=== PATIENT | female | born 1955 | race Caucasian/White ===

== ENCOUNTER 2016-10-15 19:33 | Inpatient (IN) ==
[2016-10-15] MEDS ORDERED: ASPIRIN PO STA (19:45)
[2016-10-15 20:49] LABS: MANUAL DIFF NEEDED? NO
[2016-10-15 20:56] LABS: BASO% 0.3 % (0.0-0.8); EOS# 0.06 X1000 (0.0-0.7); EOS% 0.5 % (0.0-10.0); HEMATOCRIT 42.5 % (37.0-47.0); HEMOGLOBIN 13.3 g/dL (12.0-16.0); IMM GRAN# 0.07 X1000 (0.0-0.04); IMM GRAN% 0.6 % (0.0-0.5); LYMPH# 1.34 X1000 (1.2-3.4); LYMPH% 11.3 % (20.5-51.1); MCH 30.2 PG (27-31); MCHC 31.3 g/dL (33-37); MCV 96.4 FL (81-99); MONO# 0.81 X1000 (0.11-0.59); MONO% 6.8 % (1.7-9.3); MPV 10.7 FL (7.4-10.4); NEUT% 80.5 % (42.2-75.2); PLT 256 X1000 (130-400); RBC 4.41 XMIL (4.2-5.4)
[2016-10-15 21:13] LABS: AMYLASE 45 U/L (20-200); LIPASE 50 U/L (13-60)
[2016-10-15 21:16] LABS: AGAP 14; ALBUMIN 3.9 g/dL (3.5-5.0); ALKALINE PHOSPHATASE 74 U/L (32-104); BUN 13 mg/dL (8-22); CALCIUM 9.1 mg/dL (8.8-10.2); CHLORIDE 101 mmol/L (98-107); CK PROFILE 33 U/L (24-173); COSMO 279; GOT 14 U/L (10-30); GPT 16 U/L (10-36); MAGNESIUM 2.1 mg/dL (1.5-2.7); POTASSIUM 3.6 mmol/L (3.5-5.1); SODIUM 138 mmol/L (136-145); TCO2 23 mmol/L (25-35); TOTAL PROTEIN 6.4 g/dL (6.3-8.3)
[2016-10-15 21:17] LABS: INR 0.96 (0.86-1.15); PROTIME 13.1 Seconds (12.1-15.5); PTT PL 23.4 Seconds (22.6-43.9)
--- NOTE | 2016-10-15 21:55 | EKG Report ---
Test Performed on : 10/15/2016 9:21:14 PM Test Reason : CHEST PAIN Blood Pressure : / mmHG Vent. Rate : 083 BPM Atrial Rate : 083 BPM P-R Int : 168 ms QRS Dur : 086 ms QT Int : 368 ms P-R-T Axes : 057 056 060 degrees QTc Int : 432 ms Normal sinus rhythm. Possible Left atrial enlargement Borderline ECG When compared with ECG of 27-JUN-2013 18:56, aberrant conduction. is no longer present Unconfirmed Result
[2016-10-15] MEDS ORDERED: DUONEB (A & A) INH ONE (22:18)
--- NOTE | 2016-10-15 22:33 | Diag Imaging Result Document ---
PROCEDURE NAME: CT ABD/PELVIS W/ IV CONT ONLY - 10/15/2016 STUDY: CT abdomen and pelvis with intravenous contrast. There are calcified granuloma in the lower lungs. There is fatty infiltration of the liver. Normal spleen, pancreas, gallbladder, and adrenal glands. The right kidney is slightly smaller than the left. No hydronephrosis. Moderate atherosclerosis. No aneurysmal dilatation to the abdominal aorta. No bowel obstruction. No inflammation about the cecum. No abscess. The urinary bladder is only mildly distended. The uterus has been removed. No adnexal mass. There has been prior surgery to the lower lumbar spine. IMPRESSION: 1. Fatty infiltration of the liver. 2. Hysterectomy. A preliminary report was given at 10:09 p.m.
[2016-10-16] MEDS ORDERED: DUONEB (A & A) INH ONE (00:48)
[2016-10-16] MEDS ORDERED: SOLU-MEDROL IV ONE (00:48)
[2016-10-16] MEDS ORDERED: NS 1,000 ML IV ONE (00:54)
[2016-10-16] MEDS ORDERED: BENADRYL ONE (01:58)
[2016-10-16] MEDS ORDERED: BENADRYL IV ONE (02:18)
--- NOTE | 2016-10-16 02:38 | Diag Imaging Result Document ---
PROCEDURE NAME: ANGIOGRAM/PULMONARY ARTERIES - 10/15/2016 STUDY: CT chest with intravenous contrast. COMPARISON: Compared to 06/07/2011. No pleural effusions. The heart is enlarged. No thoracic aorta aneurysm or dissection. Moderate coronary artery calcifications in the left anterior descending artery. There are scattered calcified mediastinal and hilar lymph nodes with scattered calcified granuloma. Normal opacification of the pulmonary arteries and their proximal branches. There are several tiny nodules/nodular infiltrates in the right upper lobe which were not present on 06/07/2011. No consolidation. No bronchiectasis. Limited images through the upper abdomen reveal fatty infiltration of the liver. IMPRESSION: 1. No definite pulmonary emboli. 2. There is evidence of a prior granulomatous infection. 3. Mild cardiomegaly. 4. Development of tiny nodules/nodular infiltrates in the right upper lobe. A preliminary report was given at 12:18 a.m.
[2016-10-16] MEDS ORDERED: SOLU-MEDROL IV SCH (06:00)
[2016-10-16] MEDS ORDERED: DUONEB (A & A) INH PRN (07:02)
[2016-10-16] MEDS: DUONEB (A & A) INH SCH ×5 (07:50→23:12)
--- NOTE | 2016-10-16 07:58 | Diag Imaging Result Document ---
PROCEDURE NAME: CHEST-2 VIEWS - 10/15/2016 FRONTAL AND LATERAL CHEST, TWO VIEWS: COMPARISON: 02/06/2015. FINDINGS: Development of atelectasis in the midright lung. The lungs are otherwise hyperexpanded. There is increased AP diameter to the chest. The heart is mildly prominent. No pleural effusions. There are calcified mediastinal lymph nodes. There are also scattered granuloma. No free air beneath the diaphragm. No consolidation. IMPRESSION: 1. Emphysema. 2. There is evidence of a prior granulomatous infection. 3. Mild cardiomegaly.
--- NOTE | 2016-10-16 12:20 | HISTORY AND PHYSICAL ---
PRIMARY CARE PHYSICIAN: [facility]. CHIEF COMPLAINT: Cough, subjective fever, congestion, chest tightness for the past several days that has progressively worsened. HISTORY OF PRESENTING ILLNESS: This is a 61-year-old female, who presented to [facility] ER with complaints of congestion, cough, subjective fever, dizziness, chest tightness for the past several days that has progressively worsened. Workup in the ER showed a white blood cell count of 11.85. She had a D-dimer of 0.68. A chest x-ray showed emphysema, evidence of a prior granulomatous infection and mild cardiomegaly. A pulmonary arteriogram showed no pulmonary emboli, but there was development of a tiny nodular infiltrate in the right upper lobe. Abdomen and pelvic CT showed fatty infiltration of the liver. So, she has been admitted for further evaluation and treatment. PAST MEDICAL HISTORY: COPD and CHF. PAST SURGICAL HISTORY: Hysterectomy. FAMILY HISTORY: Noncontributory. SOCIAL HISTORY: She currently lives with family. States she smokes 5-6 cigarettes 2-3 times a week. Denies any alcohol use or illicit drugs. ALLERGIES: Lortab, sulfa, latex and Solu-Medrol. HOME MEDICATIONS: She takes DuoNebs as directed, Coreg 12.5 mg p.o. b.i.d., Singulair 10 mg p.o. daily, prednisone 20 mg p.o. daily, and Diovan 160 mg p.o. daily. LABORATORY DATA: Showed a white blood cell count of 11.85, hemoglobin 13.3, hematocrit 42.5, platelets 256. PT and INR of 13.1 and 0.96 with a D-dimer of 0.68. Sodium 138, potassium 3.6, chloride 101, CO2 23, BUN of 13, creatinine 0.7, glucose 154, magnesium 2.1. Cardiac enzymes x2 sets were negative. ProBNP of 64, amylase 45, lipase 50. RADIOLOGIC DATA: Chest x-ray showed emphysema and evidence of a prior granulomatous infection and mild cardiomegaly. Abdomen and pelvic CT showed fatty infiltration of the liver and a hysterectomy. Pulmonary arteriogram showed no definite pulmonary emboli. There was evidence of a prior granulomatous infection, mild cardiomegaly and development of a tiny nodular infiltrate in the right upper lobe. REVIEW OF SYSTEMS: She was positive for subjective fever, chills, cough, congestion, dizziness, wheezing, some epigastric pain, back pain, with chest tightness and shortness of breath. She denied any constipation, diarrhea, burning or hurting with urination. PHYSICAL EXAMINATION: VITAL SIGNS: On arrival, she had a pulse of 97, respirations 20, blood pressure 114/76, was satting 95% on 4 L via nasal cannula. GENERAL: This is a 61-year-old female who is sitting up in the bed and answers questions appropriately. HEENT: Normocephalic, atraumatic. Pupils are equal, round, reactive to light. Extraocular movements are intact. The oropharynx and nares are clear. NECK: Supple. LUNGS: With wheezing throughout entire posterior lung skinner. O2 via nasal cannula in use with equal lung expansion and chest wall movement. HEART: With regular rate and rhythm. No murmurs, rubs, or gallops. ABDOMEN: Soft, nontender, nondistended. Bowel sounds are present x4 quadrants. EXTREMITIES: No clubbing, cyanosis, or edema. NEUROLOGICAL: The cranial nerves 2-12 are grossly intact. ASSESSMENT: 1. An acute chronic obstructive pulmonary disease exacerbation. 2. Right upper lobe pneumonia. 3. Elevated D-dimer. 4. Tobacco abuse. PLAN: She was admitted to the medical unit at [facility]. Placed on healthy heart diet. Placed on DuoNebs q. 4 hours, Levaquin 500 mg IV q. 24 hours. We will continue her home medications as previously identified. It is noted that she received Solu-Medrol 125 mg IV x1 in the emergency room and broke out into a rash. She states she has done that before. We gave Benadryl 25 mg IV x1 in the ER, and her symptoms resolved. So, we will not give any more Solu- Medrol. Will continue her home dosage of prednisone at this time, but we may need to increase that. We will recheck a CBC, BMP in the a.m. Dictated by IMER Huff for Reese Tang MD cc: IMER Huff MD Raphael K. Quansah, MD
[2016-10-16] MEDS: LEVAQUIN 500 MG/D5W 500 MG/100 ML IVPB IV SCH (12:45)
[2016-10-16] MEDS: DIOVAN PO SCH (12:45)
[2016-10-16] MEDS: PREDNISONE PO SCH (12:45)
[2016-10-16] MEDS: COREG PO SCH ×2 (12:46→20:40)
[2016-10-16] MEDS: SINGULAIR PO SCH (12:46)
[2016-10-17] MEDS: DUONEB (A & A) INH SCH ×10 (03:55→23:38)
[2016-10-17 05:44] LABS: MANUAL DIFF NEEDED? NO
[2016-10-17 05:53] LABS: BASO% 0.2 % (0.0-0.8); EOS# 0.04 X1000 (0.0-0.7); EOS% 0.3 % (0.0-10.0); HEMATOCRIT 39.2 % (37.0-47.0); HEMOGLOBIN 12.4 g/dL (12.0-16.0); IMM GRAN# 0.08 X1000 (0.0-0.04); IMM GRAN% 0.7 % (0.0-0.5); LYMPH# 1.73 X1000 (1.2-3.4); LYMPH% 14.2 % (20.5-51.1); MCH 30.3 PG (27-31); MCHC 31.6 g/dL (33-37); MCV 95.8 FL (81-99); MONO# 1.38 X1000 (0.11-0.59); MONO% 11.3 % (1.7-9.3); MPV 10.6 FL (7.4-10.4); NEUT% 73.3 % (42.2-75.2); PLT 240 X1000 (130-400); RBC 4.09 XMIL (4.2-5.4)
[2016-10-17 06:10] LABS: AGAP 9; BUN 16 mg/dL (8-22); CALCIUM 8.9 mg/dL (8.8-10.2); CHLORIDE 102 mmol/L (98-107); COSMO 275; POTASSIUM 3.8 mmol/L (3.5-5.1); SODIUM 137 mmol/L (136-145); TCO2 26 mmol/L (25-35)
[2016-10-17] MEDS: PREDNISONE PO SCH (07:57)
[2016-10-17] MEDS: DIOVAN PO SCH ×2 (07:58→09:26)
[2016-10-17] MEDS: COREG PO SCH ×3 (07:58→20:55)
[2016-10-17] MEDS: SINGULAIR PO SCH ×2 (07:58→09:26)
[2016-10-17] MEDS: SOLU-MEDROL IV SCH ×2 (10:05→15:26)
[2016-10-17] MEDS: ZOSYN 3.375 GM/NS 3.375 GM/50 ML IVPB IV SCH ×3 (10:05→20:55)
[2016-10-17] MEDS: MUCINEX PO SCH ×2 (10:06→20:55)
[2016-10-17] MEDS: LEVAQUIN 500 MG/D5W 500 MG/100 ML IVPB IV SCH (13:02)
--- NOTE | 2016-10-17 15:09 | PROGRESS NOTE ---
DATE: 10/17/2016 SUBJECTIVE: This patient is complaining of shortness of breath and cough today, but compared with yesterday she feels a little bit better. She denies nausea, vomiting, no diarrhea, no constipation. No fever. No chills. OBJECTIVE: Vital Signs: Temperature 98.7 degrees, pulse 83, respiratory rate 18, blood pressure 121/68, O2 saturation 98 on 3 L of nasal cannula. HEENT: Head normocephalic. No trauma. PERRLA. Neck: Supple. No JVD. No masses. Central trachea. Chest: Decreased breath sounds globally, prolonged expiratory phase, bilateral inspiratory and expiatory wheezing, mild rhonchi bilaterally scattered. Abdomen: Soft, nontender, nondistended. No hepatosplenomegaly. Obese. Cardiovascular: RRR. No murmurs. Extremities: No edema. No clubbing. No cyanosis. Neurological: The patient is alert and oriented x3. No focal neurological deficits. LABORATORY: WBC 12, hemoglobin 12.4, hematocrit 39.2, platelet 240,000. Sodium 137, potassium 3.8, chloride 102, bicarbonate 26, BUN 16, creatinine 0.6, glucose 105, calcium 8.9. ASSESSMENT AND PLAN: 1. Acute on chronic obstructive pulmonary disease exacerbation. This patient is still having inspiratory and expiatory wheezing, she is on prednisone at home and apparently she has been on prednisone since . She already has some body changes related to this. I will increase the dose of prednisone p.o. from 20 to 60, I will not use methyl prednisolone because apparently this patient has some kind of allergies to this. Continue with respiratory treatment, continue with oxygen and pulmonary toilet. 2. Right upper lobe pneumonia. Continue with the same management. Continue with antibiotics. 3. Elevated D-dimer. Aware. 4. Tobacco abuse. This patient has been highly advised against tobacco abuse, I will continue with daily cessation education. cc: MD Rambo Gunderson MD
[2016-10-17] MEDS: ROBITUSSIN-AC PO PRN (20:55)
[2016-10-18] MEDS: TYLENOL PO PRN ×3 (00:26→20:36)
[2016-10-18] MEDS: DUONEB (A & A) INH SCH ×14 (02:39→22:08)
[2016-10-18] MEDS: ZOSYN 3.375 GM/NS 3.375 GM/50 ML IVPB IV SCH ×4 (03:39→20:32)
[2016-10-18] MEDS: ROBITUSSIN-AC PO PRN (03:45)
[2016-10-18 06:14] LABS: MANUAL DIFF NEEDED? NO
[2016-10-18 06:24] LABS: BASO% 0.4 % (0.0-0.8); EOS# 0.03 X1000 (0.0-0.7); EOS% 0.3 % (0.0-10.0); HEMATOCRIT 42.1 % (37.0-47.0); HEMOGLOBIN 13.4 g/dL (12.0-16.0); IMM GRAN% 0.9 % (0.0-0.5); LYMPH# 2.21 X1000 (1.2-3.4); LYMPH% 19.3 % (20.5-51.1); MCH 30.5 PG (27-31); MCHC 31.8 g/dL (33-37); MCV 95.7 FL (81-99); MONO# 1.29 X1000 (0.11-0.59); MONO% 11.3 % (1.7-9.3); MPV 10.6 FL (7.4-10.4); NEUT% 67.8 % (42.2-75.2); PLT 264 X1000 (130-400)
[2016-10-18 06:39] LABS: AGAP 15; BUN 12 mg/dL (8-22); CALCIUM 8.8 mg/dL (8.8-10.2); CHLORIDE 98 mmol/L (98-107); COSMO 273; POTASSIUM 3.9 mmol/L (3.5-5.1); SODIUM 137 mmol/L (136-145); TCO2 24 mmol/L (25-35)
[2016-10-18] MEDS: DIOVAN PO SCH (08:48)
[2016-10-18] MEDS: COREG PO SCH ×2 (08:48→20:33)
[2016-10-18] MEDS: SINGULAIR PO SCH (08:49)
[2016-10-18] MEDS: MUCINEX PO SCH ×2 (08:49→20:33)
[2016-10-18] MEDS: ZOFRAN IV PRN ×2 (08:54→18:11)
[2016-10-18] MEDS ORDERED: PREDNISONE PO SCH (09:00)
[2016-10-18] MEDS ORDERED: SOLU-MEDROL ONE (12:12)
[2016-10-18] MEDS ORDERED: SOLU-MEDROL IV ONE (12:17)
[2016-10-18 12:28] LABS: BE -4.2 mmoll (-3.0-3.0); BLOOD TYPE ARTERIAL; DRAW SITE R RADIAL; METHB 0.7 % (0.0-1.5); O2(CT) 15.6 mL/dL (15.0-23.0); PO2(98.6) 52 mmHg (60-100); SAMPLE BLOOD; SAO2 78.5 % (95.0-100.0); THB 14.4 g/dL (11.5-17.4)
--- NOTE | 2016-10-18 13:31 | Diag Imaging Result Document ---
PROCEDURE NAME: CHEST-PORTABLE - 10/18/2016 PORTABLE CHEST: Compared 10/15/2016. FINDINGS: There is stable borderline cardiomegaly. There has been development of mild perihilar infiltrate at the right upper lobe. There are no other acute changes identified. There is no pneumothorax seen. IMPRESSION: Development of perihilar infiltrate at right upper lobe.
[2016-10-18 13:44] LABS: pH(98.6) 7.06 (7.35-7.45)
[2016-10-18 13:45] LABS: PCO2(98.6) 103 mmHg (35-45)
[2016-10-18 13:46] LABS: MODALITY BI PAP
[2016-10-18 13:47] LABS: ALLEN TEST YES
--- NOTE | 2016-10-18 13:52 | EKG Report ---
Test Performed on : 10/18/2016 1:01:23 PM Test Reason : pt non responsive Blood Pressure : / mmHG Vent. Rate : 102 BPM Atrial Rate : 102 BPM P-R Int : 184 ms QRS Dur : 086 ms QT Int : 342 ms P-R-T Axes : 074 068 060 degrees QTc Int : 445 ms Sinus tachycardia. Biatrial enlargement Abnormal ECG When compared with ECG of 15-OCT-2016 21:21, (Unconfirmed) Nonspecific T wave abnormality no longer evident in Anterior leads Unconfirmed Result
[2016-10-18 14:02] LABS: URINE CULTURE PL NEEDED? NO
[2016-10-18 14:04] LABS: BILIRUBIN URINE NEGATIVE (NEGATIVE); BLOOD URINE 4+ (NEGATIVE); CLARITY SL. CLOUDY (CLEAR); COLOR YELLOW; GLUCOSE URINE NEGATIVE (NEGATIVE); LEUKOCYTES URINE NEGATIVE (NEGATIVE); NITRITE URINE NEGATIVE (NEGATIVE); PROTEIN URINE 2+(100 mg/dL) mg/dL (NEGATIVE); SP GRAVITY URINE 1.025; UROBILINOGEN URINE NORMAL
[2016-10-18 14:39] LABS: URINE EPITHELIAL CELLS <10 /HPF (<10); URINE RBC 20-40 /HPF (<10); URINE WBC <10 /HPF (<10)
[2016-10-18 14:40] LABS: URINE CAST GRANULAR PRESENT /LPF; URINE CRYSTAL NONE SEEN /HPF; URINE SOURCE CATH
--- NOTE | 2016-10-18 14:46 | PROGRESS NOTE ---
DATE: 10/18/2016 SUBJECTIVE: This patient is complaining of shortness of breath today again. As per the patient, when I saw her in the morning, she was feeling about the same, but today in the afternoon around noon she went to the bathroom by herself and the nurse team found her unresponsive, probably this patient had a vasovagal reaction and on top of that this patient is still has COPD exacerbation that is not getting better. We did before this patient on BiPAP an ABG that showed pH of 7.06, pCO2 of 103 and PO2 of 52. Lactic acid 0.6. This patient will be transferred to the ICU and probably this patient will be intubated. I already talked to the stock house worker to find a place and transfer this patient to [facility] ICU. This patient needs to be seen by a client care coordinator. As per the nurse and some of the respiratory therapy team this patient has been increasing and decreasing the oxygen level of treatment by herself and adding and modifying her medications when she has medications scheduled here. OBJECTIVE: Vital Signs: On the monitor heart rate 103. I do not see any respiratory rate on the monitor but on my physical exam is around 28-35, blood pressure 179/116, O2 saturation, this patient is on BiPAP machine at this moment and the oxygen saturation is 98. HEENT: Head normocephalic. No trauma. PERRLA. Neck: Supple. No JVD. No masses. Central trachea. Chest: Decreased breath sounds globally. There is decreased air entry bilaterally with short inspiratory phase. Cardiovascular: RRR. No murmurs. Tachycardic. Neurological: The patient is lethargic. She is not following commands. She moves all 4 extremities. LABORATORY DATA: WBC 11.4, hemoglobin 13.4, hematocrit 42.1, platelets 264,000. Sodium 137, potassium 3.9, chloride 98, bicarbonate 24, BUN 12, creatinine 0.9, glucose 92, calcium 8.8. ASSESSMENT AND PLAN: 1. Acute hypercapnic respiratory failure, this patient is on a BiPAP machine at this moment but probably she will need mechanical intubation. I have placed this patient on methylprednisolone 60 q.6h hours, I talked to the patient about this treatment in the morning and she told me that methylprednisolone can cause some kind of itchiness in her hands but nothing major. 2. Acute on chronic obstructive pulmonary disease exacerbation as above. This condition is getting worse, I do believe that she needs to be evaluated by the Pulmonary Department. 3. Right upper lobe pneumonia. This patient has been placed on Zosyn and levofloxacin. We will continue to monitor. We will continue with the same treatment for now. 4. Elevated D-dimer. Aware. 5. Tobacco abuse. This patient has been highly advised multiple times against tobacco abuse. She told me that when she feels better she smokes. I will continue with daily cessation education. 6. Morbid obesity. Aware. 7. Acute respiratory acidosis which is not compensated, probably this patient will be intubated and transferred to [facility] to continue treatment. Overall, this patient has poor prognosis, she has a severe COPD, this patient probably will be intubated and transferred to [facility]. She needs a pulmonary department evaluation and followup. cc: MD Rambo Gunderson MD
[2016-10-18] MEDS: LEVAQUIN 500 MG/D5W 500 MG/100 ML IVPB IV SCH (14:51)
[2016-10-18 15:36] LABS: BLOOD TYPE ARTERIAL; DRAW SITE R RADIAL; METHB 1.1 % (0.0-1.5); O2(CT) 18.3 mL/dL (15.0-23.0); PCO2(98.6) 42 mmHg (35-45); PO2(98.6) 94 mmHg (60-100); SAMPLE BLOOD; SAO2 97.5 % (95.0-100.0); SRATE 14 BPM; THB 13.5 g/dL (11.5-17.4); pH(98.6) 7.34 (7.35-7.45)
[2016-10-18 15:38] LABS: ALLEN TEST YES; MODALITY BI PAP
[2016-10-18] MEDS: SOLU-MEDROL IV SCH (18:11)
[2016-10-19] MEDS: DUONEB (A & A) INH SCH ×13 (00:14→23:57)
[2016-10-19] MEDS: SOLU-MEDROL IV SCH ×4 (01:15→20:09)
[2016-10-19] MEDS: ZOFRAN IV PRN ×3 (01:45→22:10)
[2016-10-19] MEDS: ZOSYN 3.375 GM/NS 3.375 GM/50 ML IVPB IV SCH ×4 (03:32→20:10)
[2016-10-19 04:47] LABS: BE 0.2 mmoll (-3.0-3.0); BLOOD TYPE ARTERIAL; DRAW SITE R RADIAL; METHB 1.2 % (0.0-1.5); O2(CT) 18.4 mL/dL (15.0-23.0); PO2(98.6) 107 mmHg (60-100); SAMPLE BLOOD; SAO2 98.2 % (95.0-100.0); SRATE 14 BPM; THB 13.5 g/dL (11.5-17.4); pH(98.6) 7.33 (7.35-7.45)
[2016-10-19 04:49] LABS: PCO2(98.6) 51 mmHg (35-45)
[2016-10-19 04:50] LABS: ALLEN TEST YES; MODALITY BI PAP
[2016-10-19 06:45] LABS: AGAP 16; BUN 18 mg/dL (8-22); CALCIUM 8.7 mg/dL (8.8-10.2); CHLORIDE 98 mmol/L (98-107); COSMO 279; POTASSIUM 4.2 mmol/L (3.5-5.1); SODIUM 137 mmol/L (136-145); TCO2 22 mmol/L (25-35)
[2016-10-19 07:08] LABS: BASO% 0.1 % (0.0-0.8); HEMATOCRIT 40.7 % (37.0-47.0); HEMOGLOBIN 12.8 g/dL (12.0-16.0); IMM GRAN# 0.07 X1000 (0.0-0.04); IMM GRAN% 0.6 % (0.0-0.5); LYMPH# 0.61 X1000 (1.2-3.4); LYMPH% 5.2 % (20.5-51.1); MANUAL DIFF NEEDED? YES; MCH 29.8 PG (27-31); MCHC 31.4 g/dL (33-37); MCV 94.7 FL (81-99); MONO# 0.34 X1000 (0.11-0.59); MONO% 2.9 % (1.7-9.3); MPV 11.1 FL (7.4-10.4); NEUT% 91.2 % (42.2-75.2); PLT 267 X1000 (130-400)
[2016-10-19 07:15] LABS: BANDS 4 % (0-1); LYMPHS 4 % (21-51); MONO 2 % (1-9)
[2016-10-19] MEDS: SINGULAIR PO SCH (08:21)
[2016-10-19] MEDS: DIOVAN PO SCH (08:21)
[2016-10-19] MEDS: MUCINEX PO SCH ×2 (08:21→20:09)
[2016-10-19] MEDS: COREG PO SCH ×2 (08:21→20:09)
[2016-10-19] MEDS ORDERED: NS 500 ML ONE (09:27)
[2016-10-19] MEDS ORDERED: CALMOSEPTINE OINTMENT TOP PRN (11:21)
[2016-10-19] MEDS: LEVAQUIN 500 MG/D5W 500 MG/100 ML IVPB IV SCH (12:39)
[2016-10-19] MEDS: XANAX PO PRN ×2 (12:51→22:11)
--- NOTE | 2016-10-19 16:03 | PROGRESS NOTE ---
DATE: 10/19/2016 SUBJECTIVE: The patient is having shortness of breath and is a little bit anxious. She is asking for double the dose of nebulizer treatment. No fever. No chills. The patient still smokes. OBJECTIVE: Vital Signs: Blood pressure 147/64, pulse of 80, respirations 21, temperature 97.4 degrees, saturation of 95% on BiPAP 40% FiO2. General Appearance: Anxious white female in mild distress due to shortness of breath. HEENT: Anicteric sclerae and conjunctivae. Neck: Supple. No JVD. No bruits. Cardiovascular: S1, S2. Normal rate and rhythm. No murmur, rubs, or gallops. Pulmonary: The patient has very decreased air movement bilaterally and wheezes, mostly expiratory wheeze. Gastrointestinal: Soft, nontender, nondistended. Normoactive bowel sounds. Musculoskeletal: No clubbing, cyanosis, or edema. LABORATORY: White count 11.66, hemoglobin 12.8, hematocrit of 40.7, platelets of 267,000. Chemistry revealed sodium 137, potassium 4.2, chloride 98, bicarb 22, BUN 18, creatinine 0.9, glucose 151, calcium 8.7. ASSESSMENT AND PLAN: This is a 61-year-old, white female admitted to the hospital for acute chronic obstructive pulmonary disease exacerbation. 1. Acute chronic obstructive pulmonary disease exacerbation. The patient does have acute on chronic respiratory distress due to hypercapnia. We will continue Levaquin IV. She does take methylprednisone 60 mg q.6 h., Singulair 10 mg p.o. daily, and q.4 h. nebulizer. Cultures have remained negative thus far. 2. Tobacco abuse. Education provided. The patient is adamant about quitting. Will give the patient a nicotine patch to decrease her craving. 3. Hypertension. We will continue with Diovan and Coreg. 4. Deep vein thrombosis prophylaxis. Will put the patient on Lovenox. 5. Code Status: The patient is a full code. cc: Rambo Tellez MD
[2016-10-19] MEDS: TYLENOL PO PRN ×2 (16:16→22:10)
[2016-10-20] MEDS: DUONEB (A & A) INH SCH ×11 (01:40→22:33)
[2016-10-20] MEDS: SOLU-MEDROL IV SCH ×4 (01:48→18:42)
[2016-10-20] MEDS: ZOSYN 3.375 GM/NS 3.375 GM/50 ML IVPB IV SCH ×4 (03:47→20:45)
[2016-10-20] MEDS: ZOFRAN IV PRN (06:20)
[2016-10-20] MEDS: DIOVAN PO SCH (10:37)
[2016-10-20] MEDS: MUCINEX PO SCH ×2 (10:37→20:46)
[2016-10-20] MEDS: COREG PO SCH ×2 (10:37→20:47)
[2016-10-20] MEDS: SINGULAIR PO SCH (10:37)
[2016-10-20] MEDS: LOVENOX SUBQ SCH (10:38)
[2016-10-20] MEDS: XANAX PO PRN (10:41)
--- NOTE | 2016-10-20 13:31 | PROGRESS NOTE ---
DATE: 10/20/2016 SUBJECTIVE: The patient is feeling much better today. She appeared to be much more comfortable, rested well overnight with the help of Xanax. No acute events reported by the overnight staff. OBJECTIVE: Vital Signs: This morning, blood pressure 114/64, pulse of 54, respirations 16, temperature 97.7 degrees, saturations of 97-100% on 4% iO2 BiPAP. General Appearance: Morbidly obese, white female in no acute distress. Appears to be comfortable. HEENT: Anicteric sclerae. Clear conjunctivae. Neck: Supple. No JVD. No bruit. Cardiovascular: S1 and S2. Normal rate and rhythm. No murmur, rubs, or gallops. Pulmonary: The patient has mild wheezes bilaterally and crackles in the bases. GI: Soft, nontender, nondistended. Normoactive bowel sounds. Musculoskeletal: No clubbing, cyanosis, or edema. Laboratory: White count 11.66, hemoglobin 12.8, hematocrit of 40.7, platelets of 267,000. Chemistry: Sodium 137, potassium is 4.2, chloride 98, bicarb 22, BUN 18, creatinine 0.9. Her ABG showed pH of 7.44, CO2 of 51, of 107. A chest x-ray that was done yesterday showed perihilar infiltrates of the right upper lobe. ASSESSMENT/PLAN: A 61-year-old, white female admitted to the hospital for acute chronic obstructive pulmonary disease exacerbation with possible pneumonia. 1. Chronic obstructive pulmonary disease exacerbation may be secondary to pneumonia. We will keep her on Levaquin and Zosyn for now. We will follow her creatinine. We will continue Solu- Medrol 60 mg every 6 hours. Keep her on the BiPAP for probably another day and we will wean her off of the BiPAP as tolerated. 2. Hypertension. We will continue Coreg and valsartan. 3. Morbid obesity. [employer]. 4. Chronic pain. We will put the patient on Ultram. 5. Deep venous thrombosis prophylaxis with patient on Lovenox. 6. Code status. The patient is a full code.
[2016-10-20] MEDS: LEVAQUIN 750 MG/D5W 750 MG/150 ML IVPB IV SCH (14:14)
[2016-10-20] MEDS: ULTRAM PO SCH ×2 (14:16→20:46)
[2016-10-20] MEDS: TESSALON PO SCH ×2 (14:16→20:49)
--- NOTE | 2016-10-20 14:33 | Diag Imaging Result Document ---
PROCEDURE NAME: KUB ABDOMEN - 10/20/2016 ABDOMEN: COMPARISON: 10/15/2016. FINDINGS: There is a nonobstructive bowel gas pattern. No free air or abnormal calcifications. IMPRESSION: No acute disease.
[2016-10-20] MEDS ORDERED: IMODIUM PO PRN (15:05)
[2016-10-20] MEDS: CULTURELLE PO SCH (20:46)
[2016-10-20] MEDS: PAXIL PO SCH (20:48)
[2016-10-21] MEDS: DUONEB (A & A) INH SCH ×14 (00:19→23:27)
[2016-10-21] MEDS: SOLU-MEDROL IV SCH ×4 (00:56→17:45)
[2016-10-21] MEDS: ZOSYN 3.375 GM/NS 3.375 GM/50 ML IVPB IV SCH ×4 (03:13→20:42)
[2016-10-21] MEDS: ULTRAM PO SCH ×3 (05:20→20:41)
[2016-10-21] MEDS: TESSALON PO SCH ×3 (05:20→20:40)
[2016-10-21 05:46] LABS: AGAP 9; BUN 23 mg/dL (8-22); CALCIUM 8.6 mg/dL (8.8-10.2); CHLORIDE 103 mmol/L (98-107); COSMO 288; POTASSIUM 4.4 mmol/L (3.5-5.1); SODIUM 140 mmol/L (136-145); TCO2 28 mmol/L (25-35)
[2016-10-21 05:48] LABS: BASO% 0.1 % (0.0-0.8); HEMATOCRIT 39.8 % (37.0-47.0); HEMOGLOBIN 12.2 g/dL (12.0-16.0); IMM GRAN# 0.05 X1000 (0.0-0.04); IMM GRAN% 0.6 % (0.0-0.5); LYMPH# 0.77 X1000 (1.2-3.4); LYMPH% 8.9 % (20.5-51.1); MANUAL DIFF NEEDED? YES; MCH 29.8 PG (27-31); MCHC 30.7 g/dL (33-37); MCV 97.1 FL (81-99); MONO# 0.33 X1000 (0.11-0.59); MONO% 3.8 % (1.7-9.3); MPV 10.7 FL (7.4-10.4); NEUT% 86.6 % (42.2-75.2); PLT 264 X1000 (130-400)
[2016-10-21 06:50] LABS: HYPOCHROM OCCASIONAL; LYMPHS 7 % (21-51); MONO 2 % (1-9)
[2016-10-21] MEDS: COREG PO SCH ×2 (08:51→20:41)
[2016-10-21] MEDS: LOVENOX SUBQ SCH (08:51)
[2016-10-21] MEDS: CULTURELLE PO SCH ×2 (08:51→20:40)
[2016-10-21] MEDS: MUCINEX PO SCH ×2 (08:51→20:42)
[2016-10-21] MEDS: DIOVAN PO SCH (08:52)
[2016-10-21] MEDS: SINGULAIR PO SCH (08:52)
[2016-10-21] MEDS: LEVAQUIN 750 MG/D5W 750 MG/150 ML IVPB IV SCH (08:52)
--- NOTE | 2016-10-21 13:06 | PROGRESS NOTE ---
DATE: 10/21/2016 SUBJECTIVE: The patient is having less shortness of breath. She just states she continues to sleep well using Xanax and her codeine cough syrup. OBJECTIVE: Vital Signs: Blood pressure is 156/107, heart rate is 64, respirations are 22 with a temperature of 97.8 degrees. She is currently on BiPAP. Cardiovascular: Regular rate and rhythm. S1 and S2 appreciated. Pulmonary: She does have scattered wheezes and crackles. She is currently on BiPAP. Gastrointestinal: Abdomen is soft, nontender, nondistended with bowel sounds in all 4 quadrants. Extremities: No clubbing, cyanosis, or edema. Pulses are palpable x4. LABORATORY DATA: WBC is 8.6, with a hemoglobin of 12.2, hematocrit 39.8, and platelets of 264,000. Sodium is 140, potassium 4.4, BUN 23, creatinine 0.7 with a glucose of 183. ASSESSMENT AND PLAN: 1. Chronic obstructive pulmonary disease exacerbation most likely secondary to pneumonia. We will continue her IV antibiotics at present, continue steroids to taper. BiPAP as needed. 2. Hypertension. We will continue her Coreg and valsartan. 3. Chronic pain. She states Ultram is helping. 4. DVT prophylaxis. Lovenox. 5. The patient did request to meet with hospice yesterday afternoon. She did meet with [facility] as well as comfort care. We will discuss patient's wishes with the patient and order as appropriate. Dictated by IMER Pryor for Des Prieto MD cc: IMER Pryor MD
[2016-10-21] MEDS: XANAX PO PRN (20:41)
[2016-10-21] MEDS: PAXIL PO SCH (20:41)
[2016-10-22] MEDS: SOLU-MEDROL IV SCH ×3 (00:47→12:46)
[2016-10-22] MEDS: DUONEB (A & A) INH SCH ×9 (01:51→16:21)
[2016-10-22] MEDS: ZOSYN 3.375 GM/NS 3.375 GM/50 ML IVPB IV SCH ×3 (03:45→14:17)
[2016-10-22] MEDS: TESSALON PO SCH ×2 (06:00→12:46)
[2016-10-22] MEDS: ULTRAM PO SCH ×2 (06:00→12:46)
[2016-10-22 06:29] LABS: BASO% 0.1 % (0.0-0.8); HEMATOCRIT 39.1 % (37.0-47.0); HEMOGLOBIN 12.1 g/dL (12.0-16.0); IMM GRAN% 1.4 % (0.0-0.5); LYMPH# 0.71 X1000 (1.2-3.4); LYMPH% 9.6 % (20.5-51.1); MANUAL DIFF NEEDED? YES; MCHC 30.9 g/dL (33-37); MONO# 0.24 X1000 (0.11-0.59); MONO% 3.3 % (1.7-9.3); MPV 10.8 FL (7.4-10.4); NEUT% 85.6 % (42.2-75.2); PLT 260 X1000 (130-400); RBC 4.03 XMIL (4.2-5.4)
[2016-10-22 06:32] LABS: AGAP 12; BUN 26 mg/dL (8-22); CALCIUM 8.8 mg/dL (8.8-10.2); CHLORIDE 101 mmol/L (98-107); COSMO 286; POTASSIUM 4.2 mmol/L (3.5-5.1); SODIUM 137 mmol/L (136-145); TCO2 24 mmol/L (25-35)
[2016-10-22] MEDS: LEVAQUIN 750 MG/D5W 750 MG/150 ML IVPB IV SCH (08:40)
[2016-10-22] MEDS: LOVENOX SUBQ SCH (08:40)
[2016-10-22] MEDS: SINGULAIR PO SCH (08:40)
[2016-10-22] MEDS: MUCINEX PO SCH (08:41)
[2016-10-22] MEDS: DIOVAN PO SCH (08:41)
[2016-10-22] MEDS: COREG PO SCH (08:41)
[2016-10-22] MEDS: CULTURELLE PO SCH (08:42)
[2016-10-22 10:29] LABS: LYMPHS 9 % (21-51); MONO 4 % (1-9)
[2016-10-22 10:30] LABS: HYPOCHROM 1+
[2016-10-22] MEDS: XANAX PO PRN (12:52)
[2016-10-22 15:12] VITALS: BP 176/96
--- NOTE | 2016-11-02 13:44 | DISCHARGE SUMMARY ---
ADMISSION DATE: 10/16/2016 DISCHARGE DATE: 10/22/2016 DATE OF ADMISSION: 10/16/2016. DATE OF DISCHARGE: 10/22/2016. DIAGNOSES: 1. Chronic obstructive pulmonary disease exacerbation, most likely secondary to pneumonia. 2. Right upper lobe pneumonia. 3. Hypertension. 4. Chronic pain. 5. Elevated D-dimer with a negative CTA. CONSULTATIONS: None. DIAGNOSTICS: 10/15/2016 chest x-ray: 1. Emphysema. 2. Evidence of a prior granulomatous infection. 3. Mild cardiomegaly. 10/15/2016 pulmonary arteriogram: Revealed: 1. No definite pulmonary emboli. 2. Evidence of a prior granulomatous infection. 3. Development of tiny nodular infiltrates in the right upper lobe. 10/15/2016 CT of the abdomen and pelvis: Fatty infiltration of the liver and hysterectomy. 10/18/2016 chest x-ray: Development of perihilar infiltrate at the right upper lobe. 10/20/2016 abdominal x-ray: 1. No acute disease. 2. Nonobstructive bowel gas pattern. 3. No free air or abnormal calcifications. Microbiology sputum culture.: Few yeast. HOSPITAL COURSE: Ms. Alfonso was admitted to the hospital with acute chronic obstructive pulmonary disorder exacerbation felt to be secondary to right upper lobe pneumonia. She did receive antibiotic coverage of Levaquin along with a pulmonary toilet, to which she did respond. Zosyn was added shortly after admission. She was treated with steroids to taper, along with a breathing treatment. During the hospitalization, she did state that she was allergic to steroids. Although, she tolerated steroid as well. She did have periods of being anxious, for which she was given Xanax, which helped tremendously. Once Xanax was added, she did sleep well overnight. We did continue her home medications. We did add codeine cough syrup. Once this was added, the patient did rest well through the day, she felt, and she felt like she was less short of breath. As much of her shortness of breath was a cough. The family did call [facility], per their and the patient's request, and they did meet and decide that she would be discharged home under the care of [facility] with oral antibiotics and BiPAP as needed. DISCHARGE ASSESSMENT: Cardiovascular: Regular rate and rhythm. S1 and S2 are appreciated. Pulmonary: She has scattered wheezes and crackles throughout. Gastrointestinal: Abdomen was soft, nontender, nondistended with bowel sounds in all 4 quadrants. Extremities: No clubbing, cyanosis, or edema. Pulses palpable x4. Calves nontender. DISCHARGE MEDICATIONS: 1. Culturelle b.i.d. 2. Levaquin 500 mg daily for 7 days. 3. Prednisone taper over 18 days. 4. DuoNebs every 2 hours as needed. 5. Diovan 160 mg daily. 6. Singulair 10 daily. 7. Coreg 12.5 b.i.d. DISCHARGE VITAL SIGNS: Blood pressure was 176/96, with a heart rate of 60, respirations 18, temperature 97 degrees with oxygen saturations of 96 to 98% on BiPAP. DISCHARGE ACTIVITY: As tolerated. DISPOSITION: The patient will be followed by [facility]. She is being discharged home with family members. TIME SPENT: This is a greater than 30 minute discharge. Dictated by IMER Pryor for Des Prieto MD cc: IMER Pryor MD
--- NOTE | 2016-11-13 19:11 | ED EKG INTERP ---
This chart was entered by Molly Erwin Scribe, acting as scribe for Yannick Rachel DO. EKG Interpretation - EKG Time of EKG reading by physician:: 21:21 EKG Read and Signed by:: Yannick Rachel EKG Interpretation (*Must complete 3 of following elements*): Normal Rate: 83 Rhythm: NSR Salvo: normal QRS: other (POSS LAE) VT Interval: normal This chart was documented by the indicated scribe, (Molly Erwin Scribe) and accurately reflects the services I performed and decisions made by , Yannick Rachel DO, as attested by the provider's signature.
--- NOTE | 2016-11-13 19:13 | PROVIDER DOCUMENTATION ---
This chart was entered by Molly Erwin Scribe, acting as scribe for Yannick aRchel DO. HPI-General Adult - General Chief Complaint: Epigastric Pain Stated Complaint: epigastric pain Time Seen by Provider: 10/15/16 19:48 Source: patient Allergies/Adverse Reactions: Patient Allergies Allergy/AdvReac Type Severity Reaction Status Date / Time hydrocodone bitartrate * Allergy Severe difficulty Verified 06/27/13 18:17 [From Lortab] breathing Sulfa (Sulfonamide Allergy Intermediate ITCHING Verified 06/27/13 18:17 Antibiotics) latex Allergy RASH Verified 02/06/15 12:51 Home Medications: Home Medication List Medication Instructions Recorded Confirmed Last Taken Type Carvedilol 12.5 mg PO BID 02/06/15 10/16/16 10/15/16 11:40 History Montelukast [Singulair] 10 mg PO DAILY 02/06/15 10/16/16 10/15/16 11:45 History Valsartan [Diovan] 160 mg PO DAILY 02/06/15 10/16/16 10/15/16 11:45 History Albuterol 2.5MG/Ipratrop 0.5MG 1 dose IH DIRECTED 10/15/16 10/15/16 Unknown History [Duoneb (A & A)] Albuterol 2.5MG/Ipratrop 0.5MG 3 ml INH RTQ2H neb 10/22/16 Unknown Rx [Duoneb (A & A)] Lactobacillus Rhamnosus GG 1 each PO BID capsule 10/22/16 Unknown Rx [Culturelle] Levofloxacin [Levaquin] 500 mg PO DAILY #7 tablet 10/22/16 Unknown Rx Prednisone [Deltasone] See Taper PO DIRECTED #70 tablet 10/22/16 Unknown Rx - History of Present Illness -Gen Adult Nature of Presenting Problems: PT IS A 61YOF PRESENTING TO THE ED C/O URI. PT STATES FOR THE PAST WEEK SHE HAS FELT BAD. SHE STATES CHEST TIGHTNESS, COUGH, CONGESTION, DIZZY , BACK PAIN AND EPIGASTRIC PAIN AFTER EATING. PT HAS AUDIBLE WHEEZES AND A SUBJECTIVE FEVER OF 100.7 AT HOME. NO OTHER COMPLAINTS AT THIS TIME. Location of Pain/Injury: reports: generalized Pain Radiation: reports: no radiation Quality of Pain: reports: aching, fullness, pressure Severity: reports: moderate Onset/Duration: reports: 1 week ago Timing: reports: still present Context/Activities at Onset: reports: light activity Modifying Factors: improves with: nothing Associated Symptoms: reports: back/neck pain, chest pain, cough, diaphoresis, EENT symptoms, fatigue, fever/chills, malaise, sinus congestion/drainage, shortness of breath. denies: arm pain, nausea, vomiting, trouble walking Similar Symptoms Previously?: No Recently seen or treated by another doctor?: No Review of Systems - Adult - REVIEW OF SYSTEMS - ADULT Constitutional: reports: see HPI, chills, fever, fatique Eyes: reports: no symptoms reported Ears, Nose, Mouth & Throat: reports: no symptoms reported Cardiovascular: reports: see HPI, chest pain. denies: palpitations, syncope Respiratory: reports: see HPI, cough, dyspnea on exertion, shortness of breath, wheezing Gastrointestinal: reports: see HPI, abdominal pain. denies: diarrhea, nausea, vomiting Genitourinary: reports: no symptoms reported Musculoskeletal: reports: no symptoms reported Integumentary: reports: no symptoms reported Neurological: reports: no symptoms reported Psychiatric: reports: no symptoms reported Endocrine: reports: no symptoms reported Hematologic/Lymphatic: reports: no symptoms reported Allergic/Immunologic: reports: no symptoms reported All Other Systems: Reviewed and Negative Past History - Adult - PAST MEDICAL HISTORY-ADULT Review of Records: reports: Old Records Reviewed, Nursing Assessment Review, Medications Reviewed, Social history reviewed & non-contributory. Major Childhood Illnesses: reports: denies history Cardiovascular: reports: denies history Respiratory: reports: COPD Gastrointestinal: reports: denies history Obstetrical/Gynecological: reports: denies history Genitourinary: reports: denies history Musculoskeletal: reports: denies history Neurological: reports: denies history Psychiatric: reports: denies history Endocrine/Immune: reports: denies history Other Conditions: reports: denies history - PRIOR SURGERIES/PROCEDURES Surgical/Procedure History: reports: hysterectomy, other (back surgery) - IMMUNIZATION STATUS Childhood Immunizations: See Nurse Assessment Flu Vaccine: See Nurse Assessment - FAMILY HISTORY Family History: reviewed, not pertinent - SOCIAL HISTORY Smoking: quit greater than 1 year Substance Use: none/never, denies Alcohol Use Frequency: never Living Situation: family Physical Exam-General - PHYSICAL EXAM-ADULT Initial Vital Signs Reviewed: Yes - CONSTITUTIONAL General Appearance: appears well, alert, moderate distress - EYES Eyes: PERRL/EOMI, pink conjunctivae, FUN - HEAD, EARS, NOSE, MOUTH & THROAT HENMT: normocephalic/atraumatic, moist mucous membranes, normal ENT inspection, TMs normal, pharynx normal - NECK Neck: non-tender, full range of motion, supple, normal inspection - RESPIRATORY Respiratory: chest non-tender, no pleuratic chest pain, no respiratory distress , no accessory muscle use, wheezing. negative: lungs clear, normal breath sounds - CARDIOVASCULAR Cardiovascular: normal peripheral pulses, regular rate, rhythm, no edema, no gallop, no JVD, no murmur - GASTROINTESTINAL (ABDOMEN) Abdominal Exam: normal bowel sounds, non tender, soft, no organomegaly, no pulsatile mass - LYMPHATIC Lymphatic: no adenopathy - MUSCULOSKELETAL Back Exam: normal inspection, no CVA tenderness, no vertebral tenderness Extremity: normal range of motion, non-tender, normal gait, normal inspection, no pedal edema, no calf tenderness, normal capillary refill, pelvis stable - SKIN Integumentary: normal color, normal turgor, warm/dry - NEUROLOGIC Neurologic: vocational rehabilitation counselor II-XII nml as tested, grossly normal, no motor/sensory deficits - PSYCHIATRIC Psych/Mental Status: normal mood/affect, normal thought content, normal thought process, oriented x 3 Progress - PLAN OF CARE/RESULTS Progress/Plan/Lab Results: Vital Signs - 8 hr 10/15/16 19:33 10/15/16 19:47 Pulse Rate 97 H 96 H Respiratory Rate 20 18 Blood Pressure 114/76 O2 Sat by Pulse Oximetry 95 95 Orders Category Date Time Status Cardiac Monitoring DIRECTED Care 10/15/16 19:45 Active Oxygen Therapy- ED Nursing DIRECTED Care 10/15/16 19:45 Active CHEST-2 VIEWS [RAD] Stat Exams 10/15/16 19:45 Ordered AMYLASE [CHEM] Stat Lab 10/15/16 19:58 Ordered CBC WITH ELECTRONIC DIFF [HEME] Stat Lab 10/15/16 19:45 Ordered CK PROFILE [SP CHEM] Stat Lab 10/15/16 19:45 Ordered COMPREHENSIVE METABOLIC PANEL [CHEM] Stat Lab 10/15/16 19:[address] Or[address] D-D[address] [COAG] Stat Lab 10/15/16 19:45 Ordered LIPASE [CHEM] Stat Lab 10/15/16 19:58 Ordered MAGNESIUM [CHEM] Stat Lab 10/15/16 19:45 Ordered PRO B-NATRIURETIC PEPTIDE Stat Lab 10/15/16 19:[address]IME WITH INR PL [COAG] Stat Lab 10/15/16 19:[address] [COAG] Stat Lab 10/15/16 19:45 Ordered TROPONIN T Stat Lab 10/15/16 19:45 Ordered Aspirin Med 10/15/16 19:45 Discontinued 325 mg PO STAT STA EKG [EKG] Stat Ther 10/15/16 19:45 Ordered Result Diagrams: 10/22/16 05:20 10/22/16 05:20 - CT/MRI 1 CT Study: Abdomen (NAD) Departure - Departure Time of Disposition Decision: 11:45 DIAGNOSIS: COPD (chronic obstructive pulmonary disease), Cough Disposition: ADMITTED INPATIENT 09 Certified Medical Emergency: Emergent Condition: Good - Critical Care Note This patient required my direct & personal management of CC.: No This chart was documented by the indicated scribe, (Molly Erwin Scribe) and accurately reflects the services I performed and decisions made by me, Yannick Rachel DO, as attested by the provider's signature.
== END 2016-10-22 17:59 | disposition hospice, home (50) ==
LOC: P.ED 19:33 → SUATTDRO 10-16 01:24 → P.MEDSURG 10-16 01:24 → P.ICU 10-18 13:18
PROVIDERS: ATTEND Family Medicine